=== PATIENT | male | born 1960 ===

== ENCOUNTER 2024-05-17 11:15 | Inpatient (IN) | payer OTHER ==
[~2024-05-17] VITALS: Ht 175.3 cm; Wt 75.7 kg
[2024-05-17] MEDS ORDERED: ATACAND16 MG (13:34)
[2024-05-17] MEDS ORDERED: CELEBREX (13:35)
[2024-05-17] MEDS ORDERED: TAMS0.4C (13:35)
[2024-05-17] MEDS ORDERED: DETROL (13:35)
[2024-05-23] MEDS ORDERED: MEDROLPACK PO (14:18)
[2024-05-23] MEDS ORDERED: PERCOCET 5-3251 EACH PO (14:18)
[2024-05-23] MEDS ORDERED: AMOX-CLAV 875-1 EACH PO (14:18)
[2024-05-23] MEDS ORDERED: GABAPENTIN100 M2 PO (14:19)
[2024-05-23] MEDS ORDERED: ZOFRAN8 MG PO (14:19)
[2024-05-23] MEDS ORDERED: NEURONTIN800 MG PO (14:19)
[2024-05-23] MEDS ORDERED: COLACE100 MG PO (14:19)
[2024-05-23] MEDS ORDERED: 0.9 % SODIUM CHLORIDE 1,000 ML IV SCH (14:30)
[2024-05-23] MEDS ORDERED: PROMETHAZINE HCL 50 MG/ML AMPUL IM PRN (14:30)
[2024-05-23] MEDS ORDERED: ENALAPRILAT DIHYDRATE 1.25 MG/ML VIAL IV PRN (14:30)
[2024-05-23] MEDS ORDERED: CEFAZOLIN SODIUM 1,000 MG VIAL ONE (14:42)
[2024-05-23] MEDS ORDERED: METHYLPREDNISOLONE SOD SUCC 125 MG VIAL ONE (14:43)
[2024-05-23] MEDS ORDERED: METHYLPREDNISOLONE ACETATE 80 MG/ML VIAL ONE (14:49)
[2024-05-23] MEDS ORDERED: VANCOMYCIN HCL 1,000 MG VIAL ONE (15:03)
[2024-05-23] MEDS ORDERED: IOVERSOL 320 MG/ML - 50 ML VIAL IV ONE (15:04)
[2024-05-23] MEDS ORDERED: METHYLPREDNISOLONE SOD SUCC 125 MG VIAL IV ONE ×2 (16:30)
[2024-05-23] MEDS ORDERED: VANCOMYCIN HCL 1,000 MG VIAL IV ONE (16:30)
[2024-05-23] MEDS ORDERED: HEMOSTATIC MATRIX WITH THROMBIN KIT TOP ONE (16:30)
[2024-05-23] MEDS ORDERED: IOVERSOL 320 MG/ML - 100 ML VIAL IV ONE (16:30)
[2024-05-23] MEDS ORDERED: CEFAZOLIN SODIUM 1,000 MG VIAL IV ONE (16:30)
[2024-05-23] MEDS ORDERED: VANCOMYCIN HCL 1,000 MG VIAL IR ONE (16:30)
[2024-05-23] MEDS ORDERED: METHYLPREDNISOLONE ACETATE 80 MG/ML VIAL IM ONE ×2 (16:30)
[2024-05-23] MEDS ORDERED: VANCOMYCIN HCL 1,000 MG VIAL SPEPROC ONE (16:30)
[2024-05-23] MEDS ORDERED: METHYLPREDNISOLONE SOD SUCC 125 MG VIAL IV SCH (17:00)
[2024-05-23] MEDS ORDERED: CEFAZOLIN SODIUM 1,000 MG in 0.9 % SODIUM CHLORIDE 50 ML IV SCH (17:00)
[2024-05-23] MEDS ORDERED: FAMOtidine 20 MG TABLET PO SCH (17:00)
[2024-05-23] MEDS ORDERED: DOCUSATE SODIUM 100MG CAP PO SCH (17:00)
[2024-05-23] MEDS ORDERED: MORPHINE SULFATE 4 MG,MORPHINE SULFATE 2 MG IV SCH (18:00)
[2024-05-23] MEDS ORDERED: MORPHINE SULFATE 4 MG/ML VIAL IV ONE ×2 (18:40→19:50)
[2024-05-23] MEDS ORDERED: ACETAMINOPHEN 500 MG GEL..CAP PO SCH (20:00)
[2024-05-23] MEDS ORDERED: VANCOMYCIN HCL 1,000 MG VIAL IV SCH (21:00)
[2024-05-23] MEDS ORDERED: GABAPENTIN 800 MG TABLET PO SCH (21:00)
[2024-05-23 21:43] VITALS: BP 145/82; O2SAT 100
[2024-05-24] VITALS: BP 146/89; O2SAT 99
[2024-05-24] MEDS ORDERED: SODIUM CHLORIDE 0.45 % 1,000 ML IV SCH
[2024-05-24 04:30] VITALS: BP 158/91; O2SAT 98
[2024-05-24] MEDS ORDERED: OxyCODONE HCL 5 MG TABLET (ROXICODONE) PO PRN (06:01)
[2024-05-24 06:19] LABS: HEMATOCRIT 39.3 % (39.0-48.0); HEMOGLOBIN 13.9 g/dL (13-16.00); MEAN CELL VOLUME 89.4 fL (80.0-100.00); MEAN CORPUSCULAR HEMOGLOBIN 31.7 pg (27.00-32.0); MEAN CORPUSCULAR HGB CONC 35.5 g/dl (32.0-36.0); PLATELET COUNT 175 K/uL (150-450); RED BLOOD COUNT 4.39 M/uL (4.00-6.00); RED CELL DISTRIBUTION WIDTH 12.2 % (11.5-14.5)
[2024-05-24 06:47] LABS: CALCIUM 8.8 mg/dL (8.5-10.1); CREATININE SERUM 1.01 mg/dL (0.70-1.30); GFR 74.85; POTASSIUM 3.93 mEq/L (3.5-5.1)
[2024-05-24 08:00] VITALS: BP 126/75; O2SAT 98
[2024-05-24] MEDS ORDERED: TAMSULOSIN HCL 0.4 MG CAP PO SCH (09:00)
[2024-05-24 12:30] VITALS: BP 140/75; O2SAT 98
[2024-05-24 17:14] VITALS: BP 143/74; O2SAT 100
[2024-05-24 23:30] VITALS: BP 138/74; O2SAT 98
[2024-05-25 04:30] VITALS: BP 138/81; O2SAT 98
[2024-05-25 08:49] VITALS: BP 134/79; O2SAT 98
[2024-05-25] MEDS ORDERED: ENOXAPARIN SODIUM 40 MG/0.4 ML SYRINGE SUBCUTANEO SCH (09:00)
== END 2024-05-25 09:17 | disposition home or self-care (01) | DRG 428 ==
LOC: O/R 05-23 11:06 → PED 05-23 11:06 → EDBD 05-23 11:15 → SURH 05-23 11:15 → PED 05-23 18:33
PROVIDERS: ADMIT Orthopaedic Surgery Orthopaedic Surgery of the Spine; ATTEND Orthopaedic Surgery Orthopaedic Surgery of the Spine
PROC: 0SG0071 Fusion of Lumbar Vertebral Joint with Autologous Tissue Substitute, Posterior Approach, Posterior Column, Open Approach (ICD-10-PCS; 2024-05-23)
PROC: XRGD0R7 Fusion of Lumbosacral Joint using Custom-Made Anatomically Designed Interbody Fusion Device, Open Approach, New Technology Group 7 (ICD-10-PCS; 2024-05-23)
PROC: 0SG3071 Fusion of Lumbosacral Joint with Autologous Tissue Substitute, Posterior Approach, Posterior Column, Open Approach (ICD-10-PCS; 2024-05-23)
PROC: 0ST20ZZ Resection of Lumbar Vertebral Disc, Open Approach (ICD-10-PCS; 2024-05-23)
PROC: 0ST40ZZ Resection of Lumbosacral Disc, Open Approach (ICD-10-PCS; 2024-05-23)
PROC: 0QB30ZZ Excision of Left Pelvic Bone, Open Approach (ICD-10-PCS; 2024-05-23)
PROC: 07DR0ZZ Extraction of Iliac Bone Marrow, Open Approach (ICD-10-PCS; 2024-05-23)
PROC: 4A1104G Monitoring of Peripheral Nervous Electrical Activity, Intraoperative, Open Approach (ICD-10-PCS; 2024-05-23)
PROC: XRGB0R7 Fusion of Lumbar Vertebral Joint using Custom-Made Anatomically Designed Interbody Fusion Device, Open Approach, New Technology Group 7 (ICD-10-PCS; principal; 2024-05-23 16:00)
DX: M48.062 Spinal stenosis, lumbar region with neurogenic claudication (principal); M48.07 Spinal stenosis, lumbosacral region; M43.17 Spondylolisthesis, lumbosacral region; I10 Essential (primary) hypertension